=== PATIENT | female | born 1980 | race Caucasian/White ===

== ENCOUNTER 2024-09-20 13:09 | Emergency (ER) | payer MEDICAID ==
[~2024-09-20] VITALS: Ht 154.9 cm; Wt 71.2 kg
[2024-09-20 13:17] VITALS: BP 100/49; PULSE 81; RESP 16; TEMP 36.9; O2SAT 98
[2024-09-20] MEDS ORDERED: LIDO700A30 TP (14:12)
[2024-09-20] MEDS ORDERED: IBUP-2028 MT (14:12)
== END 2024-09-20 14:28 | disposition home or self-care (01) ==
LOC: ER 14:24
DX: M54.50 Low back pain, unspecified (principal); E11.9 Type 2 diabetes mellitus without complications; E78.00 Pure hypercholesterolemia, unspecified; Z98.890 Other specified postprocedural states; Z79.899 Other long term (current) drug therapy; Z88.0 Allergy status to penicillin
CPT/HCPCS: 99282